=== PATIENT | female | born 1955 | race Caucasian/White ===

== ENCOUNTER 2020-08-08 19:31 | Inpatient (IN) | payer OTHER ==
[~2020-08-08] VITALS: Ht 157.5 cm; Wt 49.9 kg
[2020-08-08 20:50] VITALS: BP 203/104
[2020-08-08 23:54] VITALS: BP 185/92
[2020-08-09 00:26] LABS: URINE BILIRUBIN NEGATIVE (Negative); URINE BLOOD 3+ (Negative); URINE CLARITY CLOUDY; URINE COLOR YELLOW; URINE GLUCOSE-RANDOM* NEGATIVE (Negative); URINE KETONES NEGATIVE (Negative); URINE PROTEIN (DIPSTICK) 1+ (Negative); URINE UROBILINOGEN 0.2 E.U./dl (0.2-1.0)
[2020-08-09 00:45] LABS: URINE LEUKOCYTES-REFLEX 3+ (Negative); URINE NITRITE-REFLEX POSITIVE (Negative)
[2020-08-09] MEDS ORDERED: LEVO-T137 MCG PO (00:50)
[2020-08-09] MEDS ORDERED: IBU-200200 MG PO (00:51)
[2020-08-09] MEDS ORDERED: XVITE TABLET1 EACH PO (00:53)
[2020-08-09] MEDS ORDERED: COQ-1030 MG PO (00:54)
[2020-08-09] MEDS ORDERED: ZINC SULFATE50 MG PO (00:55)
[2020-08-09] MEDS ORDERED: TURMERIC500 M2 PO (00:55)
[2020-08-09 00:57] LABS: CASTS None Seen /LPF (None Seen); CRYSTALS None Seen /LPF (None Seen); MUCUS 0-3 Light strn/LPF (None Seen); SQUAMOUS 0-3 Few /LPF (0-3); URINE RBC >20 Many /HPF (NONE SEEN); URINE WBC-REFLEX >25 Many /HPF (0-5); WBC CLUMPS Moderate (None Seen)
[2020-08-09 03:40] VITALS: BP 168/86
[2020-08-09 04:59] LABS: HEMOGLOBIN 9.9 gm/dL (12.0-15.0); MCH 32.3 pg (26.0-34.0); MCHC 33.2 g/dL (28.0-37.0); MCV 97.4 fL (80.0-100.0); RBC 3.08 mil/uL (4.20-5.00); RDW 14.3 % (10.5-14.5); WBC 8.2 thou/uL (4.0-11.0)
--- NOTE | 2020-08-09 05:00 | NUR ---
Arrived from [facility] around 2044. O2 at 1L/NC for comfort with O2 sat of 100%. Titrated O2 off this am and tolerating room air well. FORKLIFT MECHANIC came in to see pt. BP elevated , hydralazine IV given and it is starting to trend down. Tylenol given for c/o intermittent mild headache and chronic low back pain. No c/o nausea since arrival. Voided 800 ml per commode with PVR of >375 ml. FORKLIFT MECHANIC notified. Renal US done at bedside. Pt. also stated she has some vaginal bleeding. Noted fresh blood when she wiped then light red to pink the next time she used commode to void. UA sent and results called to FORKLIFT MECHANIC. IV ABT given as ordered. She has been afebrile. Bed alarm on and SCD's in place. She slept some during the night.
[2020-08-09 05:21] LABS: ALBUMIN 2.4 g/dL (3.4-5.0); CALCIUM 8.4 mg/dL (8.5-10.1); CREATININE 7.4 mg/dL (0.6-1.0); MAGNESIUM 2.2 mg/dL (1.8-2.4); TOTAL BILIRUBIN 0.7 mg/dL (0.2-1.0); TOTAL PROTEIN 6.3 g/dL (6.4-8.2)
[2020-08-09 05:28] LABS: POTASSIUM 6.5 mmol/L (3.5-5.1)
--- NOTE | 2020-08-09 06:20 | NUR ---
Critical K level of 6.5 reported to Davin KITCHEN and orders placed. Pt. given high dose albuterol by RT then Insulin 5 units IV , Calcium gluconate IV and D 50 IV given by RN. Up to commode this am and voided 100 ml with post void residual > 400.SEGMENT PRODUCER notified and order received.Pt. straight cathed for 600 ml, cloudy,yellow urine.
[2020-08-09 07:25] VITALS: BP 179/79
[2020-08-09 08:55] LABS: URINE BILIRUBIN NEGATIVE (Negative); URINE BLOOD TRACE (Negative); URINE CLARITY HAZY; URINE COLOR YELLOW; URINE GLUCOSE-RANDOM* NEGATIVE (Negative); URINE KETONES NEGATIVE (Negative); URINE LEUKOCYTES 3+ (Negative); URINE NITRITE POSITIVE (Negative); URINE PROTEIN (DIPSTICK) TRACE (Negative); URINE SPECIFIC GRAVITY 1.015 (1.005-1.035); URINE UROBILINOGEN 0.2 E.U./dl (0.2-1.0)
[2020-08-09 09:05] LABS: SQUAMOUS 0-3 Few /LPF (0-3); URINE WBC >25 Many /HPF (NONE SEEN)
[2020-08-09 09:06] LABS: CASTS None Seen /LPF (None Seen); CRYSTALS None Seen /LPF (None Seen); URINE RBC 1-2 Rare /HPF (NONE SEEN)
[2020-08-09 09:11] LABS: PROT/CREAT RATIO 0.7; URINE CREATININE-RANDOM* 60.6 mg/dL; URINE PROTEIN-RANDOM* 43.1 mg/dL (<11.9)
--- NOTE | 2020-08-09 09:33 | NUR ---
Notification of pt with low BMI of 18.4. Admit with SANTHOSH, hypertensive urgency. Visit this am, minimal breakfast consumed. States usually eats fine and holds wt around 100 lb, no wt loss. Has been nauseated. No teeth and asking for softer foods-will change diet order. Low nutrition risk
[2020-08-09 11:03] VITALS: BP 149/67
[2020-08-09 15:06] VITALS: BP 149/75
--- NOTE | 2020-08-09 16:09 | NUR ---
INITIAL ASSESSMENT: Received consult. SW reviewed chart and spoke with nursing and attending physician. Pt was transferred to [facility] from [facility] due to elevated troponin and acute renal failure. Nephrology, TOOL ROOM LATHE OPERATOR and Urology consulted. CT abdomen results are pending. Pt off the unit during time of SW visit. No weekend discharge planned. PT/OT are working with pt. SW discussed case with 5N recharger for possible 5N consult on Wednesday. Per chart, pt is alert/orientated x 4. Pt lives alone in a house in [place]. 2 steps to enter. No steps inside. Prior to admission, pt was independent with ADLS. No use of DME. Pt's dtr lives near pt. SW will follow up with pt at a later time and assist as needed with discharge planning.
--- NOTE | 2020-08-09 18:56 | NUR ---
ASSUMED PATIENT CARE AT 0700. A/O X4. C/O NAUSEA AND BACK PAIN. GENERLIZED WEAKNESS. WILL KEEP MONITOR.
[2020-08-09 20:00] VITALS: BP 171/87
[2020-08-09 23:35] VITALS: BP 166/80
[2020-08-10] VITALS (7 sets, daily range): BP systolic 134–181; BP diastolic 70–95
--- NOTE | 2020-08-10 03:31 | NUR ---
Pt. stated she slept well during the night. Requested tylenol for headache and low back pain with some relief. Also requested for nausea med , zofran given with relief. Hydralazine prn given for elevated BP. Bright had 600 ml this shift.
[2020-08-10 04:46] LABS: ALBUMIN 2.3 g/dL (3.4-5.0); CALCIUM 7.7 mg/dL (8.5-10.1); CREATININE 7.1 mg/dL (0.6-1.0); PHOSPHORUS 5.4 mg/dL (2.6-4.7); POTASSIUM 4.9 mmol/L (3.5-5.1)
[2020-08-10 15:21] LABS: HEMATOCRIT 27.5 % (37.0-47.0); HEMOGLOBIN 9.5 gm/dL (12.0-15.0)
--- NOTE | 2020-08-10 18:10 | NUR ---
ASSUMED PATIENT CARE AT 0700. A/O X4. NOTED STEFFANY HAND AND FACE SWOLLEN. SOB. NEW ORDER RECEIVED. VSS. 650ML URINE OUTPUT. SLOWLY TOWARDS POC GOALS.
--- NOTE | 2020-08-10 20:32 | NUR ---
PT ALERT AND ORIENTED X4. FOLLOWS COMMANDS. C/O PAIN TO LOWER BACK /10 . 2 TYLENOL GIVEN. HS MEDS GIVEN. PT HAS SLIGHT SWELLING ON CHEEKS AND FINGERS. WILL CONTINUE TO MONITOR PT FOR INCREASE IN SWELLING OR ANY CHANGES. REINFORCED FALL PRECAUTIONS AND NEED TO CALL NS IF SWELLING GETS ANY WORSE OR ANY OTHER CHANGES.
[2020-08-11] VITALS (9 sets, daily range): BP systolic 135–174; BP diastolic 64–89
[2020-08-11 03:47] LABS: ALBUMIN 2.3 g/dL (3.4-5.0); CALCIUM 8.3 mg/dL (8.5-10.1); CREATININE 6.9 mg/dL (0.6-1.0); POTASSIUM 4.9 mmol/L (3.5-5.1)
--- NOTE | 2020-08-11 04:16 | NUR ---
Pt progressing slowly towards d/c goals. Facial and hand swelling has not increased overnight. Bp elevaed around mn. Labetolol iv given.bp came back down into 140-s and 150s. Bp elevated 170's around 0330 . It was not time to give labetolol yet . Rechecked around 0400 . Bp down to 150s. Held labaetolol. tylenol given for c/o CHANG around 0330. Pt stated pain down to 2/10 presently. no s/s bleeding noted. Lg amts clear yellow urine noted in sullivan.
--- NOTE | 2020-08-11 13:20 | NUR ---
PT ALERT AND ORIENTED TIMES FOUR. VSS. IVF INFUSING PER ORDER, MENCHACA TO DD. PT DENIES PAIN AT THIS TIME. PT TOLERATES MEDS AND MEALS. WILL CONTINUE TO MONITOR.
--- NOTE | 2020-08-12 03:22 | NUR ---
PT AOX4. PT WITH HOARSENESS. PT REPORTS 2/10 HEADACHE PAIN AND 3/10 BACK PAIN. PT RECEIVING PRN PO APAP Q4HR. PT DENIES SOB WHILE ON ROOM AIR, CONGESTED COUGH NOTED. PT TOLERATING PO INTAKE OF FLUIDS AND MECHANICAL-ALTERED CHOPPED DIET WITHOUT ISSUE. PT REPORTS INTERMITTENT NAUSEA WITHOUT EMESIS. PT RECEIVING PRN IV ZOFRAN Q4HR. PT RESTING IN BED THROUGHOUT SHIFT, FREQUENT REPOSITIONING ENCOURAGED, PT NOTED TO SHIFT INDEPENDENTLY WHILE IN BED. MENCHACA IN PLACE, PATENT WITH SECUREMENT DEVICE. NONPITTING EDEMA NOTED TO BLE AND BUE. PT REPORTS NUMBNESS AND TINGLING IN BOTH HANDS. CAPILLARY REFILL LESS THAN 3SEC IN ALL EXTREMITIES, ALL PERIPHERAL PULSES PALPABLE. PT ENCOURAGED TO NOTIFY STAFF FOR ALL NEEDS, CALL LIGHT WITHIN REACH, BED ALARM ON, BED LOCKED IN LOWEST POSITION, FREQUENT MONITORING WILL CONTINUE.
[2020-08-12 05:13] VITALS: BP 175/89
[2020-08-12 05:52] LABS: ALBUMIN 2.4 g/dL (3.4-5.0); CALCIUM 8.9 mg/dL (8.5-10.1); CREATININE 6.1 mg/dL (0.6-1.0); PHOSPHORUS 5.1 mg/dL (2.5-4.9); POTASSIUM 4.7 mmol/L (3.5-5.1)
--- NOTE | 2020-08-12 09:50 | 2DMMODE ---
[facility] [place] [address] [address] [place] [address] 2 D/M-MODE ECHOCARDIOGRAM Name: DANIEL SESAY Room #: 358-P ADM IN M.R.#: [id number] Admission: 08/08/20 Attend Phys: Riana Vogt MD Discharge: Date of : 57 Report #: [id number] THIS REPORT FOR: cc: LAITH - Bailey family physician/PCP LAITH - Bailey family physician/PCP Gennaro Javed MD [facility] ~ APPROVED REPORT Study performed: 08/12/2020 07:58:49 EXAM: Comprehensive 2D, Doppler, and color-flow Echocardiogram Patient Location: Bedside Room #: 358 Status: routine BSA: 1.44 HR: 80 bpm BP: 175/89 mmHg Rhythm: NSR Other Information Study Quality: Good Indications CAD Hx: HTN, elevated troponin. 2D Dimensions RVDd: 32.58 mm IVSd: 11.42 (7-11mm) LVOT Diam: 20.01 (18-24mm) LVDd: 42.62 mm PWd: 11.43 (7-11mm) Ascending Ao: 31.30 (22-36mm) LVDs: 25.14 (25-40mm) Left Atrium: 37.14 (27-40mm) Aortic Root: 32.50 mm Volumes Left Atrial Volume (Systole) Single Plane 4CH: 71.61 mL Single Plane 2CH: 40.53 mL LA ESV Index: 42.00 mL/m2 Aortic Valve AoV Peak Wyatt.: 1.15 m/s AO Peak Gr.: 5.32 mmHg LVOT Max P.89 mmHg LVOT Max V: 0.99 m/s [facility] [address] [place] [address] 2 D/M-MODE ECHOCARDIOGRAM Name: DANIEL SESAY Room #: 358-P [facility] IN ..#: [id number] Admission: 08/08/20 Attend Phys: Eden Morse Discharge: Date of : 57 Report #: [id number] Vmax: 2.69 cm2 Mitral Valve E/A Ratio: 0.8 MV Decel. Time: 195.14 ms MV E Max Wyatt.: 0.98 m/s MV A Wyatt.: 1.27 m/s MV PHT: 56.59 ms IVRT: 89.97 ms Pulmonary Valve PV Peak Wyatt.: 0.81 m/s PV Peak Gr.: 2.62 mmHg Pulmonary Vein P Vein S: 0.87 m/s P Vein D: 0.60 m/s P Vein S/D Ratio: 1.45 Tricuspid Valve TR Peak Wyatt.: 3.04 m/s RAP Estimate: 5.00 mmHg TR Peak Gr.: 36.92 mmHg PA Pressure: 42.00 mmHg Left Ventricle The left ventricle is normal size. There is normal LV segmental wall motion. Mild concentric left ventricular hypertrophy. The left ventricular systolic function is normal. LVEF is 55-60%. Grade I - abnormal relaxation pattern. Right Ventricle The right ventricle is normal size. The right ventricular systolic function is normal. Atria Left atrium is dilated. The right atrium size is normal. Aortic Valve The aortic valve is normal in structure. No aortic regurgitation is present. There is no aortic valvular stenosis. Mitral Valve The mitral valve is normal in structure. Trace mitral regurgitation. No evidence of mitral valve stenosis. Tricuspid Valve The tricuspid valve is normal in structure. There is mild tricuspid [facility] [address] [place] [address] 2 D/M-MODE ECHOCARDIOGRAM Name: DANIEL SESAY Room #: 358-P [facility] IN .R.#: [id number] Admission: 08/08/20 Attend Phys: Eden Morse Discharge: Date of : 57 Report #: [id number] regurgitation. Estimated PAP 42 mmHg. There is moderate pulmonary hypertension. Pulmonic Valve The pulmonary valve is normal in structure. There is no pulmonic valvular regurgitation. Great Vessels The aortic root is normal in size. The ascending aorta is normal in size. IVC is normal in size and collapses >50% with inspiration. Pericardium There is no pericardial effusion. <Conclusion> Normal left ventricular size/mild concentric hypertrophy Ejection fraction of 60% Grade 1 diastolic dysfunction None normal right ventricular size/function Normal atrial size Color-flow Doppler study was performed of the aortic/mitral/tricuspid/pulmonary valve Normal aortic/mitral valve structure and function Mild tricuspid valve insufficiency Pulmonary systolic pressure estimated at 42 mmHg Normal aortic root size No pericardial effusion <ELECTRONICALLY SIGNED> By: Gennaro Javed MD, FACC 08/12/20949 9 9 Gennaro Javed MD, FACC /INF
[2020-08-12 10:58] VITALS: BP 170/88
--- NOTE | 2020-08-12 13:20 | NUR ---
SW reviewed chart and spoke with nursing and attending physician. Pt is slowly progressing towards goals for discharge. Pt is on IV steroids and IV abx. Pt to have echo today. SW met with pt at bedside. Introduced role of SW. Pt is alert/orientated x 4. Pt reports that she lives alone. Prior to admission, she was independent with ADLs. No use of DME. No hx of HH services or post-acute placement. Pt's PCP is Dr. Margo Ledezma in [place]. CARLITO discussed discharge options: inpt acute rehab v. HH. Pt states she is hoping to be able to discharge home when medically stable. Pt may be open to 5N consult if therapy is recommended. SW is following to assist as needed with discharge planning.
[2020-08-12 15:50] VITALS: BP 164/83
[2020-08-12 19:26] VITALS: BP 167/88
[2020-08-12 23:39] VITALS: BP 167/87
--- NOTE | 2020-08-13 03:46 | NUR ---
ASSUMED CARE OF PT AT SHIFT CHANGE. PT IS AOX4 AND LETS NEEDS BE KNOWN. FALL PRECAUTION IN PLACE. PT REPORTED SOME NAUSEA AND PAIN; PRNS PROVIDED. PT DENIED SOA. ASSESSMENT CHARTED. PT RAN NSR ON TELE. PT HAD A BM THIS SHIFT. PT HAS ELEVATED BP, BUT OTHER VSS. PT WAS ABLE TO SLEEP PART OF THE SHIFT. NO S/S OF ACUTE DISTRESS. WILL CONTINUE TO MONITOR.
[2020-08-13 05:21] VITALS: BP 174/91
[2020-08-13 05:44] LABS: ALBUMIN 2.4 g/dL (3.4-5.0); CALCIUM 8.5 mg/dL (8.5-10.1); PHOSPHORUS 4.6 mg/dL (2.5-4.9); POTASSIUM 4.1 mmol/L (3.5-5.1)
[2020-08-13 08:18] VITALS: BP 183/89
[2020-08-13 11:56] VITALS: BP 179/84
--- NOTE | 2020-08-13 15:26 | NUR ---
SW reviewed chart and spoke with nursing and attending physician. Pt is progressing towards goals for discharge. Discharge home is anticipated in 1-2 days. SW met with pt at bedside to discuss discharge. Pt states she feels strong enough to return home upon discharge. SW discussed services. Pt requested referral to be sent to [facility] in [place]. Pt states that she is wanting to find out of her dtr could be her paid caregiver through her Medicaid. CARLITO faxed referral to [facility] and spoke with Vee in intake, who confirms they do provide in-home care for Medicaid pts and they would do an initial assessment with pt after discharge to determine her home needs. CARLITO is following to assist as needed with discharge planning. [facility]---
[2020-08-13 16:17] VITALS: BP 181/94
--- NOTE | 2020-08-13 17:06 | NUR ---
PT ASSESSED AT START OF SHIFT. PT STATES SHE'S FEELING MUCH BETTER. STRENGTH IS BACK. HAS CHRONIC BACK PAIN AND TAKES TYLENOL TO HELP. HAVING SM AMTS OF STOOL W/ LAXATIVES FOR CONSTIPATION. IV FLUIDS CHANGED TO D5W. LARGE AMTS CLREAR URINE OUT PER MENCHACA. BP CONTINUES TO BE HIGH W/ PRN LABETELOL GIVEN. EATING AND DRINKING W/O NAUSEA.
[2020-08-13 19:15] VITALS: BP 184/90
[2020-08-14 05:21] VITALS: BP 180/91
--- NOTE | 2020-08-14 05:28 | NUR ---
PT UP TO BSC WITH SBA. 1400ml OUT OF MENCHACA. PT ASKED FOR ZOFRAN AND TYLENOL X1 OVERNIGHT. PT STILL TRYING TO HAVE A BM WITH OUT SUCCESS. VSS AND FOLLOWING POC.
[2020-08-14 05:39] LABS: ALBUMIN 2.7 g/dL (3.4-5.0); CREATININE 4.1 mg/dL (0.6-1.0); PHOSPHORUS 4.2 mg/dL (2.5-4.9); POTASSIUM 4.3 mmol/L (3.5-5.1)
[2020-08-14 07:11] VITALS: BP 184/88
[2020-08-14 11:18] VITALS: BP 172/80
[2020-08-14 11:42] VITALS: BP 172/80
--- NOTE | 2020-08-14 13:18 | NUR ---
CARLITO reviewed chart and spoke with nursing and attending physician. Pt is progressing towards goals for discharge. Pt remains on IV fluids/IV abx. Pt is too high level for admission to 5N. Pt will discharge home with a sullivan catheter and will follow up with urology as an outpatient. CARLITO met with pt at bedside to discuss discharge plan. Pt states she will feel comfortable with discharging home with the catheter. Pt will need education on catheter care. CARLITO explained that in order for in-home Medicaid services to be started, pt would need to contact [facility] and arrange an evaluation and assessment. Pt verbalized understanding. SW offered to arrange for sullivan care if needed. Pt does not think she will need it. CARLITO contacted several agencies that go to [place] ([facility], [facility], [facility], [place] , [facility] , [facility], [facility], [facility] and [facility]). All do not accept [place]-Medicaid at this time. CARLITO placed contact number for [facility] in pt's discharge summary. CARLITO is following to assist as needed with discharge planning.
--- NOTE | 2020-08-14 15:08 | PATH ---
[facility] [address] [place] [address] PATHOLOGY RPT PROCEDURE Name: LISA SESAY Room #: 358-P ADM IN M.R.#: [id number] Admission: 08/08/20 Date of : 57 Discharge: Report #: [id number] Path Case #: [id number] [facility] Accession Number: [id number] . 01 Material submitted: . vagina - VAGINAL BIOPSY . 01 Clinical history: . ACUTE RENAL FAILURE, HIGH TROPONIN . 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 (IUV:pit 08/14/2020) QTP 08/14/2020 1324 Local . 02 Comment: Examination shows a discohesive poorly differentiated malignancy with high nuclear to cytoplasmic ratio as well as multiple mitotic figures. Focal carcinoma in situ is identified overlying a few of the biopsy tissues. The malignant cells are widely invasive as identified within the desmoplastic stromal background. Multiple properly controlled immunohistochemical stains are performed on block A1. The tumor cells are strongly reactive to p16. P63 and p40 show strong nuclear reactivity within approximately 30 to 40% of the cells. ER shows less than 1% of the tumor with 2+ nuclear reactivity (non-reactive within majority of the tumor cells). Monoclonal CEA shows canalicular reactivity pattern within scattered rare foci. Vimentin is non-reactive within the malignant tumor cells. Based on the immunohistochemical stains the tumor likely represents a poorly differentiated squamous cell carcinoma. High-grade endometrial adenocarcinoma, as well as endocervical adenocarcinoma are not favored due to the stain reactivity patterns. . Dr. Esme Ricci has seen a arborist representative H and E stained slide and concurs with the diagnosis rendered. Findings of this case are discussed with Dr. Ashanti Griffiths at approximately 1:20 pm on 08/13/2020 and again the final diagnosis was relayed at approximately 11:00 am on 08/14/2020. (IUV:pit 08/14/2020) . 02 Electronically signed: . Rocio Feliciano MD, Pathologist NPI- [id number] . 01 Gross description: . Received in formalin labeled "Lisa Sesay and vaginal biopsy". Received are multiple cylindrical bryant-brown soft tissue fragments measuring in aggregate 3.0 x 2.0 x 0.2 cm. Specimen is entirely submitted in cassette A1.(BLJ; 08/12/2020) [place] [address] PATHOLOGY RPT PROCEDURE Name: LISA SESAY Room #: 358-P ADM IN M.R.#: [id number] Admission: 08/08/20 Date of : 57 Discharge: Report #: [id number] Path Case #: [id number] BLJ/BLJ 08/12/20201921 Local . 02 Pathologist provided ICD-10: C52 . 02 CPT . 984930, K91831, [id number] Specimen Comment: A courtesy copy of this report has been sent to [phone] Specimen Comment: [phone] Specimen Comment: Report sent to / DR LOZA Performed at: [address] [facility] [address], [place] [id number] MD Brown Galvan MD Phone: [phone] Performed at: [address] [facility] [address] [id number] MD Rocio Feliciano MD Phone: [phone]
[2020-08-14 15:14] VITALS: BP 180/96
--- NOTE | 2020-08-14 16:56 | NUR ---
ASSUMED PATIENT CARE AT 0700. A/O X4. BP STILL ON HIGH SIDE. GOOD URINE OUTPUT. SLOWLY TOWARDS POC GOALS.
[2020-08-14 19:36] VITALS: BP 176/94
[2020-08-15 04:33] VITALS: BP 166/85
[2020-08-15 05:42] LABS: ALBUMIN 2.4 g/dL (3.4-5.0); CALCIUM 8.5 mg/dL (8.5-10.1); CREATININE 3.7 mg/dL (0.6-1.0); PHOSPHORUS 4.9 mg/dL (2.5-4.9); POTASSIUM 4.1 mmol/L (3.5-5.1)
--- NOTE | 2020-08-15 06:25 | NUR ---
FAX RECEIVED FROM PT PCP AND PLACED IN CHART FOR DR. GRIMALDO. BERNARDA PUTTING OUT GOOD OUTPUT. PT REQUESTED PAIN MEDICATION X3. PT STILL HAVING COMPLAINTS OF CONSTIPATION WITH SMALL AMOUNTS OF BM OUT. MIRALAX GIVEN. VSS.
[2020-08-15 10:37] VITALS: BP 154/77
[2020-08-15] MEDS ORDERED: PEPCID20 MG PO (11:22)
[2020-08-15] MEDS ORDERED: FLOMAX0.4 MG PO (11:22)
[2020-08-15] MEDS ORDERED: STIMULANT LAXA1 EACH PO (11:22)
[2020-08-15] MEDS ORDERED: LOPRESSOR50 PO (11:22)
[2020-08-15] MEDS ORDERED: SYNTHROID175 MCG PO (11:22)
[2020-08-15] MEDS ORDERED: NORVASC10 MG PO (11:22)
[2020-08-15] MEDS ORDERED: CLONIDINE HCL0.1 MG PO (11:23)
[2020-08-15 11:55] VITALS: BP 172/80
[2020-08-15] MEDS ORDERED: DOXYCYCLINE HY100 M3 PO (13:01)
--- NOTE | 2020-08-15 14:47 | NUR ---
ASSUMED PATIENT CARE AT 0700. A/O X4 C/O LOWER BACK PAIN. NO DISTRESS NOTED. DISCHARGE INSTRUCTION GIVEN TO PATIENT AND PATIENT'S DAUGHTER. QUESTION ANSWERED.
--- NOTE | 2020-08-15 14:58 | NUR ---
DISCHARGET NOTE: SW reviewed chart and spoke with nursing and attending physician. Pt is medically stable for discharge home today. Pt will discharge home with a sullivan catheter. SW met with pt at bedside to discuss discharge plan. SW informed pt that a agency is unable to be found that services [place] and able to accept [place]-Medicaid pts on service. Pt verbalized understanding and states she feels comfortable with discharging home. Pt's dtr will provide transportation home today. Pt and dtr to receive education on catheter care prior to discharge. Contact info for [facility] placed in pt's discharge summary for pt to arrange an evaluation and assessment for Medicaid in-home services. No additional SW needs identified at this time, but is available to assist should needs arise.
== END 2020-08-15 14:51 | disposition home or self-care (01) | DRG 746 ==
LOC: 3W 19:31
PROVIDERS: Hospitalist; Internal Medicine Nephrology; Nurse Practitioner Family; ADMIT Hospitalist; ATTEND Hospitalist
PROC: 0UBG0ZX Excision of Vagina, Open Approach, Diagnostic (ICD-10-PCS; principal; 2020-08-08)
DX: C55 Malignant neoplasm of uterus, part unspecified (principal); E43 Unspecified severe protein-calorie malnutrition; N17.9 Acute kidney failure, unspecified; A93.8 Other specified arthropod-borne viral fevers; N13.6 Pyonephrosis; M19.90 Unspecified osteoarthritis, unspecified site; E03.9 Hypothyroidism, unspecified; Z88.0 Allergy status to penicillin; K59.00 Constipation, unspecified; I16.0 Hypertensive urgency; E87.5 Hyperkalemia; D64.9 Anemia, unspecified; N95.0 Postmenopausal bleeding; I12.9 Hypertensive chronic kidney disease with stage 1 through stage 4 chronic kidney disease, or unspecified chronic kidney disease; R33.9 Retention of urine, unspecified; Z79.1 Long term (current) use of non-steroidal anti-inflammatories (NSAID); E87.8 Other disorders of electrolyte and fluid balance, not elsewhere classified; N18.30 Chronic kidney disease, stage 3 unspecified; E83.39 Other disorders of phosphorus metabolism; R53.81 Other malaise; Z68.20 Body mass index [BMI] 20.0-20.9, adult
CPT/HCPCS: 10879

== ENCOUNTER 2020-08-31 16:51 | Inpatient (IN) | payer OTHER ==
[~2020-08-31] VITALS: Ht 157.5 cm; Wt 42.7 kg
[~2020-08-31 16:51] MED LIST: CLONIDINE HCL0.1 MG PO; COQ-1030 MG PO; DOXYCYCLINE HY100 M3 PO; FLOMAX0.4 MG PO; IBU-200200 MG PO; LEVO-T137 MCG PO; LOPRESSOR50 PO; NORVASC10 MG PO; PEPCID20 MG PO; STIMULANT LAXA1 EACH PO; SYNTHROID175 MCG PO; TURMERIC500 M2 PO; XVITE TABLET1 EACH PO; ZINC SULFATE50 MG PO
[2020-08-31 17:00] VITALS: BP 139/59
[2020-08-31 17:56] LABS: ABSOLUTE NEUTROPHILS 5.7 thou/uL (1.4-8.2); BASOPHILS 0.5 % (0.0-2.0); EOSINOPHILS 1.8 % (0.0-3.0); HEMOGLOBIN 7.4 gm/dL (12.0-15.0); LYMPHOCYTES 10.8 % (24.0-44.0); MCH 33.4 pg (26.0-34.0); MCHC 33.5 g/dL (28.0-37.0); MCV 99.8 fL (80.0-100.0); MONOCYTES 5.7 % (1.0-8.0); PLATELET COUNT 168 thou/uL (150-400); POLYS 81.2 % (36.0-66.0); RBC 2.21 mil/uL (4.20-5.00); RDW 14.5 % (10.5-14.5)
[2020-08-31 18:15] LABS: ALBUMIN 2.7 g/dL (3.4-5.0); CALCIUM 9.2 mg/dL (8.5-10.1); CREATININE 6.3 mg/dL (0.6-1.0); TOTAL BILIRUBIN 0.3 mg/dL (0.2-1.0); TOTAL PROTEIN 6.3 g/dL (6.4-8.2)
[2020-08-31 18:18] LABS: MAGNESIUM 2.3 mg/dL (1.8-2.4); POTASSIUM 6.9 mmol/L (3.5-5.1); TROPONIN-I 0.09 ng/mL (<0.06)
[2020-08-31 19:56] VITALS: BP 139/59
[2020-08-31 20:33] LABS: URINE BILIRUBIN NEGATIVE (Negative); URINE BLOOD TRACE (Negative); URINE CLARITY CLEAR; URINE COLOR YELLOW; URINE GLUCOSE-RANDOM* NEGATIVE (Negative); URINE KETONES NEGATIVE (Negative); URINE NITRITE-REFLEX NEGATIVE (Negative); URINE PROTEIN (DIPSTICK) TRACE (Negative); URINE SPECIFIC GRAVITY 1.015 (1.005-1.035); URINE UROBILINOGEN 0.2 E.U./dl (0.2-1.0)
[2020-08-31 20:39] VITALS: BP 141/62
[2020-08-31 20:40] LABS: URINE LEUKOCYTES-REFLEX 1+ (Negative)
[2020-08-31 20:57] VITALS: BP 145/59
[2020-08-31 21:14] LABS: BACTERIA-REFLEX >30 Many /HPF (None Seen); CASTS None Seen /LPF (None Seen); CRYSTALS None Seen /LPF (None Seen); SQUAMOUS 0-3 Few /LPF (0-3); URINE RBC 1-2 Rare /HPF (NONE SEEN); URINE WBC-REFLEX 6-15 Few /HPF (0-5)
[2020-08-31 21:16] LABS: TRANSITIONAL EPITHEL CELL 0-3 Few /LPF (None Seen)
[2020-09-01] VITALS (15 sets, daily range): BP systolic 131–177; BP diastolic 52–81
[2020-09-01 00:07] LABS: CALCIUM 9.4 mg/dL (8.5-10.1); TROPONIN-I 0.08 ng/mL (<0.06)
[2020-09-01 04:27] LABS: WBC 6.7 thou/uL (4.0-11.0)
[2020-09-01 04:30] LABS: HEMOGLOBIN 6.6 gm/dL (12.0-15.0); MCH 33.4 pg (26.0-34.0); MCHC 33.7 g/dL (28.0-37.0); MCV 99.1 fL (80.0-100.0); RBC 1.99 mil/uL (4.20-5.00); RDW 14.4 % (10.5-14.5)
[2020-09-01 04:36] LABS: HEMATOCRIT 19.7 % (37.0-47.0)
[2020-09-01 04:41] LABS: % SATURATION 9 % (20-39); IRON 18 ug/dL (50-170); TIBC 201 ug/dL (250-450)
--- NOTE | 2020-09-01 04:45 | NUR ---
ADMITTED TO THE FLOOR AROUND 2014, AWAKE ALERT AND ORIENTED, ADMISSION COMPLETED, C/O BACK PAIN, TYL GIVEN WITH RELIEF, ASSESSMENTS CHARTED, C/O CHEST PAIN, EKG OBTAINED, MAGISTRATE ASSISTANT NOTIFIED, CONSULT TO CARDIOLOGY, DENIES PAIN AT THE MOMENT, MEDS GIVEN PER JUN, WILL CONTINUE TO MONITOR
[2020-09-01 04:56] LABS: CALCIUM 9.3 mg/dL (8.5-10.1); MAGNESIUM 2.1 mg/dL (1.8-2.4); TROPONIN-I 0.07 ng/mL (<0.06)
[2020-09-01 05:02] LABS: POTASSIUM 6.3 mmol/L (3.5-5.1)
--- NOTE | 2020-09-01 15:20 | EKG ---
[address] [place] [address] ELECTROCARDIOGRAM REPORT Name: DANIEL SESAY Room #: 213-P ADM IN ..#: [id number] Admission: 08/31/20 Attend Phys: Isaias Mccarthy MD Discharge: Date of : 57 Report #: [id number] [facility] ED Test Date: 2020-08-31 Test Time: 18:01:20 Pat Name: DANIEL SESAY Department: Room: 213 Gender: F Ssn/Ssbn Weapons Equipment Operator: STEPHANIE MAYEN : 1955 Requested By: Ren Mccann Order Number: [id number] MD: Robin Ron Measurements Intervals [place] Rate: 54 P: 46 [place]: 148 QRS: 47 QRSD: 88 T: 50 QT: 417 QTc: 396 Interpretive Statements Sinus bradycardia Otherwise no significant abnormality Baseline wander in lead(s) V1,V3 Compared to ECG 04/10/2008 12:31:21 No significant changes Electronically Signed On 09-01-2020 15:20:11 CDT by Robin Ron [email or web address] <ELECTRONICALLY SIGNED> By: Robin Ron MD, [facility] 09/01/20 1520 180 00 Robin Ron MD, [facility] /EPI
--- NOTE | 2020-09-01 15:21 | EKG ---
[address] [place] [address] ELECTROCARDIOGRAM REPORT Name: DANIEL SESAY Room #: 213-P ADM IN M.R.#: [id number] Admission: 08/31/20 Attend Phys: Isaias Mccarthy MD Discharge: Date of : 57 Report #: [id number] [facility] Test Date: 2020-09-01 Test Time: 01:14:29 Pat Name: DANIEL SESAY Department: Room: 213 P Gender: F Sales Engagement Executive: [id number] : 1955 Requested By: Cecilia Herr Order Number: [id number] MD: Robin Ron Measurements Intervals [place] Rate: 80 P: 49 [place]: 148 QRS: 48 QRSD: 87 T: 48 QT: 359 QTc: 415 Interpretive Statements Sinus rhythm Left ventricular hypertrophy Compared to ECG 08/31/2020 18:01:20 No significant change was found Electronically Signed On 09-01-2020 15:21:36 CDT by Robin Ron [email or web address] <ELECTRONICALLY SIGNED> By: Robin Rno MD, [facility] 09/01/20 1521 0114 0114 Robin Ron MD, [facility] /EPI
[2020-09-01 15:22] LABS: ALBUMIN 2.4 g/dL (3.4-5.0); CALCIUM 9.2 mg/dL (8.5-10.1); CREATININE 6.1 mg/dL (0.6-1.0); PHOSPHORUS 5.3 mg/dL (2.6-4.7); POTASSIUM 5.4 mmol/L (3.5-5.1)
[2020-09-02] VITALS (8 sets, daily range): BP systolic 99–165; BP diastolic 60–80
--- NOTE | 2020-09-02 01:37 | NUR ---
RECEIVED REPORT FROM ANH DAY SHIFT RN.PATIENT ARRIVED TO ROOM 213 FROM SURGERY AT SHIFT CHANGE.WAS ON CARDIZEM GTT;DISCONTINUED BEFORE ARRIVING TO THE UNIT AND WAS REPLACED ON CARDENE GTT DUE TO HIGH BP.CLONIDINE PO GIVEN PRIOR TO DISCONTINUING CARDENE GTT AND WAS OFF AT 2022.TYLENOL GIVEN FOR MILD BACK PAIN.O2 2L NC.MONITOR SHOWS SR.POC CONTINUED.
[2020-09-02 04:49] LABS: ALBUMIN 2.4 g/dL (3.4-5.0); CALCIUM 8.6 mg/dL (8.5-10.1); CREATININE 5.6 mg/dL (0.6-1.0); PHOSPHORUS 4.5 mg/dL (2.5-4.9); POTASSIUM 5.2 mmol/L (3.5-5.1)
[2020-09-02 05:00] LABS: IRON 17 ug/dL (50-170)
[2020-09-02 05:15] LABS: FERRITIN 179 ng/mL (8-252)
[2020-09-02 05:35] LABS: % SATURATION 5 % (20-39); TIBC 346 ug/dL (250-450)
--- NOTE | 2020-09-02 07:05 | EKG ---
[place] [address] [facility] [place] [address] ELECTROCARDIOGRAM REPORT Name: DANIEL SESAY Room #: 213-P ADM IN M.R.#: [id number] Admission: 08/31/20 Attend Phys: Isaias Mccarthy MD Discharge: Date of : 57 Report #: [id number] [facility] Test Date: 2020-09-01 Test Time: 01:13:28 Pat Name: DANIEL SESAY Department: Room: 213 P Gender: F Exterior Door Installer: [id number] : 1955 Requested By: Kiel Motta Order Number: [id number] MD: Gennaro Javed Measurements Intervals [place] Rate: 78 P: 47 [place]: 137 QRS: 46 QRSD: 89 T: 45 QT: 357 QTc: 407 Interpretive Statements Sinus rhythm Consider left ventricular hypertrophy Compared to ECG 08/31/2020 18:01:20 Sinus bradycardia no longer present Electronically Signed On 09-02-2020 7:05:46 CDT by Gennaro Javed [email or web address] <ELECTRONICALLY SIGNED> By: Gennaro Javed MD, [facility] 09/02/20 0705 011 011 Gennaro Javed MD, FAC /EPI
--- NOTE | 2020-09-02 08:28 | NUR ---
CM S/W PT WHO INDICATED SHE LIVES ALONE IN HER HOME. PT IS INDEPENDENT W/ADLS AND DRIVES A VEHICLE. PT HAS 0 DMES. CURRENTY HAS O2 APPLIED. PT STATED SHE AND DTR ARE "WORKING ON" GETTING HER SET UP WITH [facility]. PT DENIES HX WITH HH OR SNF. CM TO CONT TO FOLLOW.
--- NOTE | 2020-09-02 10:33 | EKG ---
[address] [address] ELECTROCARDIOGRAM REPORT Name: DANIEL SESAY Room #: 213-P ADM IN M.R.#: [id number] Admission: 08/31/20 Attend Phys: Isaias Mccarthy MD Discharge: Date of : 57 Report #: [id number] [facility] Test Date: 2020-09-01 Test Time: 19:22:16 Pat Name: DANIEL SESAY Department: Room: 213 P Gender: F Personal Banking Assistant: MOY : 1955 Requested By: Isaias Mccarthy Order Number: [id number] MD: Gennaro Javed Measurements Intervals [place] Rate: 67 P: 55 [place]: 148 QRS: 28 QRSD: 88 T: 52 QT: 404 QTc: 427 Interpretive Statements Sinus rhythm Compared to ECG 09/01/2020 01:14:29 Left ventricular hypertrophy no longer present Electronically Signed On 09-02-2020 10:33:00 CDT by Gennaro Javed [email or web address] <ELECTRONICALLY SIGNED> By: Gennaro Javed MD, [facility] 09/02/20 1033 21 21 Gennaro Javed MD, FACC /EPI
--- NOTE | 2020-09-02 13:25 | 2DMMODE ---
[facility] [place] [address] 2 D/M-MODE ECHOCARDIOGRAM Name: DANIEL SESAY Fior Room #: 213-P ADM IN .R.#: [id number] Admission: 08/31/20 Attend Phys: Isaias Mccarthy MD Discharge: Date of : 57 Report #: [id number] REPORT FOR: cc: FAM - Family physician unknown FAM - Family physician unknown Eliezer Adams MD ~ APPROVED REPORT Study performed: 09/02/2020 11:31:24 EXAM: Comprehensive 2D, Doppler, and color-flow Echocardiogram Patient Location: Bedside Room #: 213 Status: routine BSA: 1.44 HR: 74 bpm BP: 154/80 mmHg Rhythm: NSR Other Information Study Quality: Good Indications Elevated Troponin Hypertension/HDD 2D Dimensions RVDd: 34.09 mm IVSd: 7.50 (7-11mm) LVOT Diam: 20.78 (18-24mm) LVDd: 46.92 mm PWd: 10.01 (7-11mm) Ascending Ao: 30.02 (22-36mm) LVDs: 30.67 (25-40mm) Left Atrium: 35.67 (27-40mm) Aortic Root: 29.78 mm IVC: 16.00 mm Volumes Left Atrial Volume (Systole) Single Plane 4CH: 93.05 mL Single Plane 2CH: 65.47 mL LA ESV Index: 59.00 mL/m2 Aortic Valve AoV Peak Wyatt.: 1.28 m/s AO Peak Gr.: 6.56 mmHg LVOT Max P.60 mmHg LVOT Max V: 1.07 m/s [facility] [place] [address] 2 D/M-MODE ECHOCARDIOGRAM Name: DANIEL SESAY Room #: 213-P [facility]#: [id number] Admission: 08/31/20 Attend Phys: Isaias Mccarthy MD Discharge: Date of : 57 Report #: [id number] Vmax: 2.84 cm2 Mitral Valve E/A Ratio: 0.9 MV Decel. Time: 264.25 ms MV E Max Wyatt.: 1.20 m/s MV A Wyatt.: 1.32 m/s MV PHT: 76.63 ms IVRT: 138.41 ms Pulmonary Valve PV Peak Wyatt.: 0.87 m/s PV Peak Gr.: 3.02 mmHg Pulmonary Vein P Vein S: 0.93 m/s P Vein A: 0.31 m/s P Vein D: 0.44 m/s P Vein A Dur.: 92.3 msec P Vein S/D Ratio: 2.11 Left Ventricle The left ventricle is normal size. There is normal LV segmental wall motion. There is normal left ventricular wall thickness. The left ventricular systolic function is normal. The left ventricular ejection fraction is within the normal range. LVEF is 55-60%. Grade I - abnormal relaxation pattern. Right Ventricle The right ventricle is normal size. The right ventricular systolic function is normal. Atria Left atrium is dilated. The right atrium size is normal. Aortic Valve The aortic valve is normal in structure. No aortic regurgitation is present. There is no aortic valvular stenosis. Mitral Valve The mitral valve is normal in structure. Trace mitral regurgitation. No evidence of mitral valve stenosis. Tricuspid Valve The tricuspid valve is normal in structure. There is no tricuspid valve regurgitation noted. Pulmonic Valve The pulmonary valve is normal in structure. There is no pulmonic [facility] [place] [address] 2 D/M-MODE ECHOCARDIOGRAM Name: DANIEL SESAY Fior Room #: 213-P [facility] IN ..#: [id number] Admission: 08/31/20 Attend Phys: Isaias Mccarthy MD Discharge: Date of : 57 Report #: [id number] valvular regurgitation. Great Vessels The aortic root is normal in size. IVC is normal in size and collapses >50% with inspiration. Pericardium There is no pericardial effusion. <Conclusion> The left ventricle is normal size. LVEF is 55-60%. Left atrium is dilated. The aortic valve is normal in structure. The mitral valve is normal in structure. Trace mitral regurgitation. The tricuspid valve is normal in structure. The pulmonary valve is normal in structure. The aortic root is normal in size. There is no pericardial effusion. <ELECTRONICALLY SIGNED> By: Eliezer Adams MD 09/02/20 1325 24 24 Eliezer Adams MD /INF
[2020-09-03 00:21] VITALS: BP 150/80
[2020-09-03 04:30] VITALS: BP 164/85
[2020-09-03 05:25] LABS: HEMATOCRIT 24.6 % (37.0-47.0); HEMOGLOBIN 8.2 gm/dL (12.0-15.0); MCHC 33.3 g/dL (28.0-37.0); MCV 96.1 fL (80.0-100.0); RBC 2.57 mil/uL (4.20-5.00); RDW 15.8 % (10.5-14.5); WBC 7.8 thou/uL (4.0-11.0)
[2020-09-03 05:33] LABS: CALCIUM 8.4 mg/dL (8.5-10.1); POTASSIUM 4.2 mmol/L (3.5-5.1)
[2020-09-03 05:34] LABS: CREATININE 3.8 mg/dL (0.6-1.0)
--- NOTE | 2020-09-03 06:45 | NUR ---
COMPLAIN OF BACK PAIN.TYLENOL GIVEN LAST NIGHT AND LIDOCAINE PATCH GIVEN THIS MORNING.MENCHACA HAS PINK TINGED URINE.MONITOR SHOWS SR.POC CONTINUED.
[2020-09-03 07:45] VITALS: BP 148/84
--- NOTE | 2020-09-03 09:19 | NUR ---
folate 6.2 low, needs supplement
[2020-09-03 11:30] VITALS: BP 138/60
[2020-09-03 15:40] VITALS: BP 151/65
--- NOTE | 2020-09-03 16:25 | NUR ---
ASSESSMENT CHARTED . MEDS PER JUN - GIVEN TYLENOL FOR CO'S OF PAIN IN BACK/ FLANK AREA WITH GOOD RESULTS - LIDOCAINE PATCH REMAINS INSITU. JEANNE DIET AND FLUIDS. NO CO'S OF NAUSEA. PT UP TO THE CHAIR - SEEN BY PHYS THERAPY THIS AM. DAUGHTER INTO VISIT. MENCHACA WITH BLOOD TINGED URINE. NO CO'S AT THE PRESENT TIME.
[2020-09-03 19:36] VITALS: BP 122/56
[2020-09-04 04:00] VITALS: BP 170/70
[2020-09-04 04:51] LABS: HEMATOCRIT 26.6 % (37.0-47.0); MCH 32.5 pg (26.0-34.0); MCHC 33.6 g/dL (28.0-37.0); MCV 96.7 fL (80.0-100.0); RBC 2.75 mil/uL (4.20-5.00); WBC 6.6 thou/uL (4.0-11.0)
[2020-09-04 05:06] LABS: CALCIUM 8.4 mg/dL (8.5-10.1); POTASSIUM 4.3 mmol/L (3.5-5.1)
[2020-09-04 05:15] LABS: CREATININE 2.8 mg/dL (0.6-1.0)
--- NOTE | 2020-09-04 07:07 | NUR ---
PATIENTS CARES WERE ASSUMED AT SHIFT CHANGE. PATIENT WAS ASSESSED AND BRANDON WERE PASSED. PATIENT STATED SHE RESTED BETTER THIS SHIFT COMPAIRED TO LAST NIGHT, ROUNDS WERE MADE THE BED IS IN A LOW AND LOCKED POSITION. PATIENT CONTINUES TO HAVE BLOODY URINE
[2020-09-04 07:34] VITALS: BP 132/80
--- NOTE | 2020-09-04 09:00 | NUR ---
ASSUMED PT CARE AT 0700. 0850, ASSESSMENT PERFORMED CHARTED. VSS. PT VOICES NO CONCERNS AT THIS TIME. WILL CONTINUE TO MONITOR AND FOLLOW POC.
[2020-09-04 11:16] VITALS: BP 160/68
--- NOTE | 2020-09-04 11:37 | NUR ---
PT IN BED, ASSESSMENT UNCHANGED. PT C/O OF LOWER BACK PAIN. TYLENOL ADMINISTERED. VSS. WILL CONTINUE TO MONITOR AND FOLLOW POC.
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
[2020-09-04 15:05] VITALS: BP 153/67
--- NOTE | 2020-09-04 16:25 | NUR ---
ASSESSMENT UNCHANGED. PTS MENCHACA REMOVED AT 1625, UROLOGY WANTS VOIDING TRIAL BEFORE BEING D/C HOME TOMORROW. PT VOICES NO CONCERNS AT THIS TIME. WILL CONTINUE TO MONITOR AND FOLLOW POC.
[2020-09-04 20:21] VITALS: BP 159/70
[2020-09-04 22:13] VITALS: BP 159/70
--- NOTE | 2020-09-05 01:18 | NUR ---
ASSUMED PT CARE AT CHANGE OF SHIFT, PT IS AWAKE, ALERT AND ORIENTED, C/O BACK PAIN, TYL GIVEN WITH PARTIAL RELIEF, PT VOIDED TO THE BEDSIDE COMMODE WITH ADEQUATE AMOUNT OF BLOOD TINGED URINE, MEDS GIVEN PER MAR, ASSESSMENTS CHARTED, DENIES NEEDS, WILL CONTINUE TO MONITOR AND FOLLOW POC, PLAN FOR DISCHARGE TODAY
[2020-09-05 04:44] VITALS: BP 151/69
[2020-09-05 04:57] LABS: HEMATOCRIT 27.4 % (37.0-47.0); HEMOGLOBIN 9.2 gm/dL (12.0-15.0); MCH 32.1 pg (26.0-34.0); MCHC 33.4 g/dL (28.0-37.0); MCV 96.2 fL (80.0-100.0); RBC 2.85 mil/uL (4.20-5.00); RDW 14.9 % (10.5-14.5)
[2020-09-05 05:07] LABS: CALCIUM 8.5 mg/dL (8.5-10.1); CREATININE 1.9 mg/dL (0.6-1.0); POTASSIUM 4.1 mmol/L (3.5-5.1)
[2020-09-05 07:40] VITALS: BP 177/79
[2020-09-05] MEDS ORDERED: CEPHALEXIN500 MG PO (11:04)
[2020-09-05] MEDS ORDERED: METOPROLOL SUCC50 MG PO (11:04)
[2020-09-05] MEDS ORDERED: PROTONIX40 M2 PO (11:05)
[2020-09-05 11:11] VITALS: BP 150/68
[2020-09-05 13:31] VITALS: BP 150/68
--- NOTE | 2020-09-05 13:57 | NUR ---
PT IS AXOX4, PLEASANT; DENIES PAIN, BUT HAS HX CHRONIC BACK PAIN. VSS, AFEBRILE, SR ON MONITOR. NEPHRO CONSULTED, UROLOGY CONSULTED, DR WEAVER CONSULTED. PT TO D/C HOME WITH FAMILY. PT EDUCATION INCLUDED RX AND FOLLOW UP APPT. FOLLW UP APPT WERE EMPHASIZED PT HAS HX OF NOT FOLLOWING UP AFTER DISCHARGE FROM HOSPITAL. PT AND FAMILY COMMUNICATED UNDERSTANDING. PT D/C TO HOME WITH FAMILY VIA PERSONAL VEHICLE.
== END 2020-09-05 14:02 | disposition home or self-care (01) | DRG 661 ==
LOC: ER 16:51 → EROBS 19:47 → 2N 19:47
PROVIDERS: Internal Medicine Hematology & Oncology; Internal Medicine Nephrology; Nurse Practitioner Family; Physician Assistant; ADMIT Hospitalist; ATTEND Hospitalist
PROC: BT141ZZ Fluoroscopy of Kidneys, Ureters and Bladder using Low Osmolar Contrast (ICD-10-PCS; principal; 2020-09-01)
PROC: 30233N1 Transfusion of Nonautologous Red Blood Cells into Peripheral Vein, Percutaneous Approach (ICD-10-PCS; principal; 2020-09-01)
PROC: 0T788DZ Dilation of Bilateral Ureters with Intraluminal Device, Via Natural or Artificial Opening Endoscopic (ICD-10-PCS; principal; 2020-09-01)
DX: N13.6 Pyonephrosis (principal); N17.9 Acute kidney failure, unspecified; E03.9 Hypothyroidism, unspecified; K59.00 Constipation, unspecified; M19.90 Unspecified osteoarthritis, unspecified site; F12.90 Cannabis use, unspecified, uncomplicated; E87.5 Hyperkalemia; N18.31 Chronic kidney disease, stage 3a; R33.9 Retention of urine, unspecified; F17.210 Nicotine dependence, cigarettes, uncomplicated; I12.9 Hypertensive chronic kidney disease with stage 1 through stage 4 chronic kidney disease, or unspecified chronic kidney disease; N95.0 Postmenopausal bleeding; D50.9 Iron deficiency anemia, unspecified; C76.3 Malignant neoplasm of pelvis; Z88.0 Allergy status to penicillin; Z71.6 Tobacco abuse counseling; Z88.8 Allergy status to other drugs, medicaments and biological substances; Z79.899 Other long term (current) drug therapy; Z20.822 Contact with and (suspected) exposure to COVID-19
CPT/HCPCS: 10081; 50101; 51620; 51767; 56674; 56815; 57160; 58565; 62110; 62900